=== PATIENT | female | born 1945 | race Caucasian/White ===

== ENCOUNTER 2019-10-14 09:23 | Outpatient (CLI) | payer MEDICARE, SELFPAY ==
--- NOTE | ~2019-10-14 | CT_ITS ---
EXAMINATION: CT abdomen pelvis wo/w con DATE: 10/14/2019 10:17 INDICATION: Gross hematuria. TECHNIQUE: Computed tomography (CT) of the abdomen and pelvis was performed without and with intraven ous contrast using a total of 130 mL Omnipaque-350 intravenous contrast with a double-bolus technique for simultaneous opacification of the renal parenchyma and renal collecting system. Automated exposu re control and iterative reconstruction technique were employed. The dose-length product was 2044.26 mGy-cm. COMPARISON: CT abdomen and pelvis 12/16/2017 FINDINGS: The visualized portions of the lung bases demonstrate peripheral reticular opacities and bronchiectas is, consistent with chronic interstitial lung disease. No pleural effusion. The heart size is normal. There are coronary artery calcifications. There are calcifications of aortic valve. No pericardial e ffusion. There are cysts in the liver measuring up to 2.1 cm. Calcifications in the liver consistent with old granulomatous disease. The gallbladder, spleen, pancreas, and adrenal glands are normal. The re is mild atrophy of the kidneys. There are cysts in the kidneys measuring up to 6 mm on the right. There is a 7 mm stone in right kidney. There is a 2 mm stone in left kidney. There is a 10 mm stone i n left renal pelvis. There is mild left hydronephrosis and hydroureter. There is fat stranding around left renal pelvis. There is diffuse bladder wall thickening, worst at the left posterior bladder. Th ere is a 2.5 x 0.7 cm hematoma in the bladder lumen. There is diverticulosis of the colon without pablo dence of diverticulitis. There are no dilated loops of bowel. There are no pathologically enlarged ly mph nodes. There is no free intraperitoneal fluid. There is a burst fracture of T11 with 1/5 loss of height and retropulsion of bone 3 mm into central spinal canal, likely acute or subacute. There are c hronic burst fractures of the superior endplates of L1, L2, and L3. There is severe lumbar spondylosi s. IMPRESSION: 1. Diffuse bladder wall thickening, worst at the left posterior bladder with mild left hydroureter. T he bladder wall thickening may be secondary to cystitis or urothelial carcinoma. 2. Hematoma in the bladder lumen. 3. 10 mm stone in the left renal pelvis with surrounding fat stranding suggesting inflammation. The m ild left hydronephrosis may be secondary to this stone and/or the bladder wall thickening. 4. Bilateral nonobstructing kidney stones. 5. T11 burst fracture, likely acute or subacute. Reviewed, dictated and finalized at location A. IMPRESSION: 1. Diffuse bladder wall thickening, worst at the left posterior bladder with mi ld left hydroureter. The bladder wall thickening may be secondary to cystitis o r urothelial carcinoma. 2. Hematoma in the bladder lumen. 3. 10 mm stone in the left renal pelvis with surrounding fat stranding suggesti ng inflammation. The mild left hydronephrosis may be secondary to this stone an d/or the bladder wall thickening. 4. Bilateral nonobstructing kidney stones. 5. T11 burst fracture, likely acute or subacute.
--- NOTE | ~2019-10-14 | XR_ITS ---
EXAMINATION: XR abdomen/kub 1V DATE: 10/14/2019 09:47 INDICATION: Hematuria. TECHNIQUE: A supine view of the abdomen on 2 radiographs was obtained. COMPARISON: CT abdomen and pelvis 10/14/2019 FINDINGS: There are no dilated loops of bowel. There is a 7 mm stone in right kidney. There is a 10 m m stone in left renal pelvis. IMPRESSION: 1. Stones in the right kidney and left renal pelvis. Reviewed, dictated and finalized at location A.
[2019-10-14 09:57] LABS: Estimated Glomerular Filt Rate 48
== END 2019-10-14 09:24 | disposition home or self-care (01) ==
PROVIDERS: PCP Family Medicine; Visit Provider Nurse Practitioner Adult Health
DX: R31.0 Gross hematuria (principal); N20.0 Calculus of kidney; N32.9 Bladder disorder, unspecified; S37.22XA Contusion of bladder, initial encounter; N13.30 Unspecified hydronephrosis; S22.081A Stable burst fracture of T11-T12 vertebra, initial encounter for closed fracture
CPT/HCPCS: 36415; 74018; 74178; Q9967

== ENCOUNTER 2019-10-25 09:30 | Outpatient (CLI) | payer MEDICARE, SELFPAY ==
--- NOTE | 2019-10-25 09:32 | ECG_ITS ---
Measurements Intervals [place] Rate: 75 P: 28 CO: 151 QRS: -36 QRSD: 85 T: 24 QT: 373 QTc: 417 Interpretive Statements SINUS RHYTHM LEFT AXIS DEVIATION ST-T WAVE ABNORMALITY IN ANTEROLATERAL LEADS- CONSIDER ISCHEMIA BASELINE ARTIFACT- I, II, III, AVR, AVL, AVF, V1, V6 ABNORMAL ECG Electronically Signed On 10-25-2019 10:40:58 CDT by Yasir Liu D.O.
[2019-10-25 10:07] LABS: Hematocrit 37.5 % (37.0-47.0); Hemoglobin 12.2 g/dL (12.0-15.0)
== END 2019-10-25 09:31 | disposition home or self-care (01) ==
PROVIDERS: Anesthesiology; PCP Family Medicine; Visit Provider Urology
DX: I10 Essential (primary) hypertension (principal); D64.9 Anemia, unspecified
CPT/HCPCS: 36415; 85014; 85018; 93005

== ENCOUNTER 2019-10-26 03:39 | Outpatient (CLI) | payer MEDICARE, SELFPAY ==
[2019-10-26 18:37] LABS: SARS-CoV-2 RNA PCR Negative
== END 2019-10-26 03:40 | disposition home or self-care (01) ==
LOC: ANHCOVIDDT 03:39
PROVIDERS: PCP Family Medicine; Visit Provider Urology
DX: Z01.812 Encounter for preprocedural laboratory examination (principal); Z20.828 Contact with and (suspected) exposure to other viral communicable diseases
CPT/HCPCS: 87635; C9803; U0003

== ENCOUNTER 2019-10-28 00:42 | Day surgery (SDC) | payer MEDICARE, SELFPAY ==
[2019-10-22 09:23] VITALS: BMI 22.7
--- NOTE | 2019-10-26 16:11 | PM.HPGS ---
History of Present Illness History of Present Illness Consent: Risks, benefits, and alternatives have been discussed and questions answered. Patient agrees to proceed with procedure. Chief complaint: Gross Hematuria Narrative: Juanis Dsouza is a 74 year old female without prior known urological history who recently underwent evaluation for transient gross hematuria. CT scan of the abdomen and pelvis revealed a 10mm left renal pelvic stone without obstruction. Her bladder showed possible soft tissue or clot. Patient has opted against definitive management for the left renal stone but like to undergo cystoscopy with possible clot evacuation. Review of Systems Cardiovascular: Cardiovascular: Denies chest pain, Denies lightheadedness, Denies palpitations and Denies dyspnea Respiratory: Respiratory: Denies dyspnea Gastrointestinal: Gastrointestinal: Denies diarrhea, Denies nausea and Denies vomiting Genitourinary: Genitourinary: Denies hematuria and Denies dysuria Endocrine: Endocrine: Denies palpitations PMFSH Past Medical History Medical History Afib HLD (hyperlipidemia) HTN (hypertension), benign Parkinson disease Family History Family History Mother Family history of cardiovascular disease Father Cerebrovascular accident Sibling Carcinoma of colon Social History Social History Smoking packs per day: 0.5 Smoking cigarettes per day: 10.0 Years smoked: 20 Smoking pack-years: 10.00 Smoking status: Former smoker Tobacco type: cigarettes Second hand tobacco smoke exposure: No Smoking end date: 02/24/82 Alcohol intake: never Substance use: never Substance use type: does not use Gender identity (if verbalized by the patient): Female Spiritual care concerns: No Meds Home Medications and Allergies Home Medications Medication Instructions Recorded Confirmed Type azathioprine 50 mg tablet 100 mg PO DAILY 02/15/19 10/22/19 History carbidopa 25 mg-levodopa 100 mg 1.5 tablet PO BID tablet 02/15/19 10/22/19 History tablet cholecalciferol (vitamin D3) 125 5,000 unit PO DAILY 02/15/19 10/22/19 History mcg (5,000 unit) tablet ferrous sulfate 325 mg (65 mg 325 mg PO DAILY 02/15/19 10/22/19 History iron) tablet memantine 10 mg tablet 20 mg PO BID tablet 02/15/19 10/22/19 History metoprolol succinate 100 mg 75 mg PO DAILY 02/15/19 10/22/19 History tablet,extended release 24 hr multivit with 1 tablet PO DAILY 02/15/19 10/22/19 History ggjnxgvp-ylrx-MZ-lutein 8 mg iron-400 mcg-300 mcg tablet tamsulosin 0.4 mg capsule 0.4 mg PO QAM 02/15/19 10/22/19 History trimethoprim 100 mg tablet 100 mg PO HS 02/15/19 10/22/19 History prednisone 10 mg tablet 10 mg PO DAILY #90 tablet 03/16/19 10/22/19 Rx apixaban 5 mg tablet 5 mg PO BID #60 tablet 05/04/19 10/22/19 Rx omeprazole 20 mg capsule,delayed 20 mg PO DAILY #90 cap 05/27/19 10/22/19 Rx release atorvastatin 20 mg PO HS 10/22/19 10/22/19 History calcium carbonate-vitamin D3 1 cap PO DAILY 10/22/19 10/22/19 History [Calcium 600 + D(3)] carbidopa-levodopa 1 tablet PO BID 10/22/19 10/22/19 History donepezil 10 mg PO DAILY 10/22/19 10/22/19 History sertraline 50 mg PO QAM 10/22/19 10/22/19 History Allergies Allergy/AdvReac Type Severity Reaction Status Date / Time ceftriaxone Allergy Severe Rash Unverified 10/22/19 08:37 Exam Const: General: no acute distress Resp: Effort & Inspection: normal respiratory effort GI: Inspection: non-distended GI Palp: No abdominal tenderness and No Guarding due to palpation present (GI) Auscultation: normal bowel sounds Assessment and Plan Assessment and plan (1) Left renal stone: Code(s): N20.0 - Calculus of kidney Status: Acute (2) Gross hematuria: Code(s): R31.0 - Gross hematuria
[2019-10-28] VITALS (7 sets, daily range): BP systolic 115–158; BP diastolic 43–69; PULSE 61–81; RESP 14–20; TEMP 36.2–36.7; O2SAT 97–100
--- NOTE | ~2019-10-28 | XR_ITS ---
EXAMINATION: XR retrograde pyelogram BI DATE: 10/28/2019 14:27 INDICATION: Nephrolithiasis and mild left hydronephrosis. TECHNIQUE: Total of 141 fluoroscopic images of the abdomen and pelvis were obtained during procedure performed by Dr. Ramon. Radiologist was not present for the imaging or procedure. The amount of fluo roscopy time used during this procedure was 0.5 minutes. COMPARISON: CT dated 10/14/2019 FINDINGS: Retrograde ureterograms with injection of contrast into both the left and right ureters and renal col lecting systems. There is a persistent filling defect at the left renal pelvis corresponding to an ap proximately 2 mm stone seen on prior CT. On the images obtained during injection of the left renal co llecting system the previously noted 7 mm stone can be seen projecting over the right kidney. On the subsequent images following contrast opacification of the right renal collecting system the stone is unable to be distinguished from the injected contrast. No stones or urothelial irregularities are see n along the normal-appearing ureters. IMPRESSION: 1. Bilateral renal stones. No stones or urothelial irregularities seen along the bilateral ureters. S ee procedure note for further detail. Reviewed, dictated and finalized at location B. IMPRESSION: 1. Bilateral renal stones. No stones or urothelial irregularities seen along th e bilateral ureters. See procedure note for further detail.
--- NOTE | 2019-10-28 11:41 | WPDHPUPDATE1 ---
History and Physical Update Update Date/Time: 10/28/19 11:41 History and Physical has been reviewed, including an updated exam of the patient. There are NO changes in the patient's condition. Risks, benefits, and alternatives have been discussed and questions answered. Patient agrees to proceed with procedure.
--- NOTE | 2019-10-28 11:42 | WPDHPUPDATE1 ---
History and Physical Update Update Date/Time: 10/28/19 11:42 History and Physical has been reviewed, including an updated exam of the patient. There are NO changes in the patient's condition. Risks, benefits, and alternatives have been discussed and questions answered. Patient agrees to proceed with procedure.
--- NOTE | 2019-10-28 12:33 | WPDANESEPP ---
Anes - Eval Pre Procedure Procedure: Operation Date: 10/28/19 13:45 Proposed Procedures p Cystoscopy, Clot Evacuation, Possible Bladder Biopsy, Retrograde Pyelogram - Shaun Ramon MD s Trans Urethral Resection Bladder Tumor - Shaun Ramon MD Date/Time: 10/28/19 12:33 Pre Op Diagnosis: Gross Hematuria Patient Data Age: 74 Gender: F Height: 5 ft 7 in Weight: 65.77 kg Allergies Allergy/AdvReac Type Severity Reaction Status Date / Time ceftriaxone Allergy Severe Rash Verified 10/28/19 12:31 Home Medications Medication Instructions Recorded Confirmed Type azathioprine 50 mg tablet 100 mg PO DAILY 02/15/19 10/28/19 History carbidopa 25 mg-levodopa 100 mg 1.5 tablet PO BID tablet 02/15/19 10/28/19 History tablet cholecalciferol (vitamin D3) 125 5,000 unit PO DAILY 02/15/19 10/28/19 History mcg (5,000 unit) tablet ferrous sulfate 325 mg (65 mg 325 mg PO DAILY 02/15/19 10/28/19 History iron) tablet memantine 10 mg tablet 20 mg PO BID tablet 02/15/19 10/28/19 History metoprolol succinate 100 mg 75 mg PO DAILY 02/15/19 10/28/19 History tablet,extended release 24 hr multivit with 1 tablet PO DAILY 02/15/19 10/28/19 History cjprupzd-vbue-RH-lutein 8 mg iron-400 mcg-300 mcg tablet tamsulosin 0.4 mg capsule 0.4 mg PO QAM 02/15/19 10/28/19 History trimethoprim 100 mg tablet 100 mg PO HS 02/15/19 10/28/19 History prednisone 10 mg tablet 10 mg PO DAILY #90 tablet 03/16/19 10/28/19 Rx apixaban 5 mg tablet 5 mg PO BID #60 tablet 05/04/19 10/28/19 Rx omeprazole 20 mg capsule,delayed 20 mg PO DAILY #90 cap 05/27/19 10/28/19 Rx release atorvastatin 20 mg PO HS 10/22/19 10/28/19 History calcium carbonate-vitamin D3 1 cap PO DAILY 10/22/19 10/28/19 History [Calcium 600 + D(3)] carbidopa-levodopa 1 tablet PO BID 10/22/19 10/28/19 History donepezil 10 mg PO DAILY 10/22/19 10/28/19 History sertraline 50 mg PO QAM 10/22/19 10/28/19 History Patient hx anesthesia problems: none Family hx anesthesia problems: none PMFSH Past Medical History Medical History (Updated 10/28/19 @ 12:33 by Jaziel Otero CRNA) Afib Depression Gross hematuria History of TIAs HLD (hyperlipidemia) HTN (hypertension), benign Left renal stone Parkinson disease Pulmonary fibrosis Thoracic aortic aneurysm Family History Family History Mother Family history of cardiovascular disease Father Cerebrovascular accident Sibling Carcinoma of colon Social History Social History Smoking packs per day: 0.5 Smoking cigarettes per day: 10.0 Years smoked: 20 Smoking pack-years: 10.00 Smoking status: Former smoker Tobacco type: cigarettes Second hand tobacco smoke exposure: No Smoking end date: 02/24/82 Alcohol intake: never Substance use: never Substance use type: does not use Living arrangements: with family Gender identity (if verbalized by the patient): Female Spiritual care concerns: No Comments SINUS RHYTHM LEFT AXIS DEVIATION ST-T WAVE ABNORMALITY IN ANTEROLATERAL LEADS- CONSIDER ISCHEMIA BASELINE ARTIFACT- I, II, III, AVR, AVL, AVF, V1, V6 ABNORMAL ECG VR 75 Exam Day of Procedure 10/28/19 12:33
[2019-10-28] MEDS: LACTATED RINGERS 1,000 ML 30 ML IV CONT ×2 (12:55→15:06)
--- NOTE | 2019-10-28 13:20 | WPDANESEFPP ---
Anes - Eval Final PreProcedure Day of Procedure 10/28/19 13:20 Patient weight: overweight Heart: regular rate and rhythm Lungs: clear to auscultation Airway: Mallampati scale class II Neurological: alert and oriented Last oral intake: >/= 8 hours ASA classification: III Emergent: no Anesthetic plan: proceed Anesthesia type and monitoring: general GIVS and standard monitoring Informed Consent: The patient's anesthetic plan and its attendant risks and benefits were discussed with the patient/family/POA. Questions were solicited and answers provided to the satisfaction of the patient/family/POA.
[2019-10-28] MEDS: GENTAMICIN 80MG/SOD CHL 50 ML 80 MG/50 ML BAG 100 MG IVPB (13:56)
[2019-10-28] MEDS: LIDOCAINE HCL 2% GEL UROJET 10 ML PKG MUCOUS MEM (14:11)
--- NOTE | 2019-10-28 14:24 | PM.PROC ---
Procedure Note - Detailed Date of procedure: 10/28/19 Pre-op diagnosis: Gross Hematuria Post-op diagnosis: other (Severe, chronic cystitis) Procedure performed: Cystoscopy, bilateral retrograde pyelography Description of procedure: Patient is brought to the operative through she has prepped and draped in routine sterile fashion while in a dorsal lithotomy position after administration of systemic sedation. Cystoscopy is undertaken with a 22 F rigid cystoscope. Urine was collected for culture. Bladder mucosa shows diffuse severe diffuse patchy hyperemia consistent with a chronic, marked cystitis. There is no intravesical foreign body or olivia neoplasm. Bladder neck and urethra endoscopically normal. He has a single orthotopic ureteral orifices with clear reflux bilaterally. A F ball-tip catheter history obtain bilateral retrograde pyelograms. She has a filling defect in the left renal pelvis consistent with her known with 10 mm left renal calculus. There is no other points of obstruction, filling defect or other identifiable pathology in the upper urinary tracts on retrograde pyelography. Point scopes wires removed. Patient was taken recovery room in good condition. Anesthesia: MAC Surgeon: Shanu Ramon MD Drains: No Packing: No Pathology: none sent Complications: No immediate complications Condition: stable Disposition: PACU
== END 2019-10-28 16:05 | disposition home or self-care (01) ==
PROVIDERS: PCP Family Medicine; Visit Provider Urology
PROC: (CPT 52352; principal; 2019-10-28 13:45)
DX: N30.21 Other chronic cystitis with hematuria (principal); I48.91 Unspecified atrial fibrillation; I10 Essential (primary) hypertension; E78.5 Hyperlipidemia, unspecified; G20 Parkinson's disease; Z87.891 Personal history of nicotine dependence; Z79.01 Long term (current) use of anticoagulants
CPT/HCPCS: 52005; 74420; 87077; 87086; 87088; 87186; A9270; C1758; C1769; J1580; J2001; J2405; J2704; J3010; J7120; Q9966